=== PATIENT | female | born 1980 | race African-American/Black ===

== ENCOUNTER 2018-06-02 07:39 | Day surgery (SDC) | payer MEDICAID, OTHER ==
--- NOTE | 2018-06-02 08:18 | Anesthesia Day of Surgery ---
Anesthesia Day of Surgery - Day of Surgery Patient Examined: Yes Patient H&P Reviewed: Yes Patient is NPO: Yes
--- NOTE | 2018-06-02 08:18 | Anesthesia Consultation ---
Anesthesia Consult and Med Hx Date of service: 06/02/18 - Airway Anesthetic Teeth Evaluation: Good ROM Head & Neck: Adequate Mental/Hyoid Distance: Adequate Mallampati Class: Class II Intubation Access Assessment: Probably Good - Pre-Operative Health Status ASA Pre-Surgery Classification: ASA2 Proposed Anesthetic Plan: MAC - Pulmonary Hx Asthma: Yes (last attack 2 months ago) COPD: No Hx Pneumonia: No - Cardiovascular System Hx Hypertension: Yes (PIH) - Central Nervous System Hx Seizures: No Hx Psychiatric Problems: No - Endocrine Hx Renal Disease: No Hx End Stage Renal Disease: No Hx Hypothyroidism: No Hx Hyperthyroidism: No - Hematic Hx Anemia: No Hx Sickle Cell Disease: No - Other Systems Hx Alcohol Use: No
--- NOTE | 2018-06-02 08:36 | History and Physical Report ---
HISTORY OF PRESENT ILLNESS: This is a 37-year-old female originally from [place], who has been having dyspeptic symptoms and abdominal pain, possible gastritis and underlying history of hypertension. This dyspeptic symptom has been persisting in spite of treatment. She has also been told that she has had H. pylori gastritis in the past. ALLERGIES: No known allergies. SOCIAL HISTORY: Denies history of smoking or alcohol use. No cardiac issues. No flu shots. PHYSICAL EXAMINATION: VITAL SIGNS: She is afebrile. Blood pressure is 168/113, pulse is 74, height is 5 feet 5 inches, weight 164 pounds. HEENT: Examination shows no JVD. LUNGS: Clear to auscultation. CARDIOVASCULAR: Examination is normal. ABDOMEN: Shows some mid abdominal tenderness. Bowel sounds present. EXTREMITIES: No pedal edema. NEUROLOGIC: The patient is otherwise alert and oriented. IMPRESSION: Dyspepsia, gastritis, possible Helicobacter pylori gastritis, rule out peptic ulcer disease and hypertension. PLAN: Plan is to do an EGD at [facility] on 06/02/2018. JOB# [id number] MADELINE/NTS
[2018-06-02] MEDS ORDERED: NACL 0.9% 1000 ML 1,000 ML IV SCH (09:00)
[2018-06-02] MEDS ORDERED: DIPRIVAN 10 MG/ML IV ONE (09:07)
[2018-06-02] MEDS ORDERED: WATER FOR IRRIG STERILE IR ONE (09:43)
--- NOTE | 2018-06-02 10:02 | Procedure Note ---
Date of procedure: 06/02/18 Pre-op diagnosis: Dyspepsia/ Abdominal Pain/ P/H/O H.pylori gastritis Post-op diagnosis: other (Small Duodenal Ulcer/ Gastritis/ Mild, Distal Esophagitis) Procedure: EGD with Biopsy Anesthesia: AARON Surgeon: MABLE HUNG Estimated blood loss: minimal Pathology: list Specimen disposition: to lab Condition: stable Disposition: same day (Treat with PPI and avoid aspirin and NSAID. Follow up in 1 to 2 weeks ([phone]).)
--- NOTE | 2018-06-02 10:09 | Post Anesthesia Evaluation ---
- Post Anesthesia Evaluation Patient Participated: Yes (sleeping) Airway Patent: Yes Stable Respiratory Function: Yes Nausea/Vomiting: No Temp > 96.8F: Yes Pain Manageable: Yes Adequeate Hydration: Yes Anesthesia Complications: No Block Receding Appropriately: Not Applicable Patient on Ventilator: No
[2018-06-02] MEDS ORDERED: BABY ASPIRIN ONE (10:13)
--- NOTE | 2018-06-02 10:29 | Operative Report ---
PROCEDURE: EGD with biopsy. INDICATIONS: This is a 37-year-old female originally from [place] with a prior history of H. pylori gastritis, who lately has been having dyspeptic symptoms and abdominal pain. EGD was done to assess for any associated upper GI pathology. DESCRIPTION OF PROCEDURE: Procedure was done after getting informed consent with MAC anesthesia. Instrument was passed through the hypopharynx into the esophagus, which showed some mild distal esophagitis. Stomach showed antral gastritis. Biopsy was done from the gastric antrum, gastric body, and angularis incisura to rule out for H. pylori and atrophic gastritis. The pylorus was patent. The duodenum and the bulb showed a small duodenal ulcer. There was minimal bleeding from the biopsy sites. No complications associated with the procedure. ASSESSMENT: 1. Dyspepsia, abdominal pain, prior history of H. pylori gastritis. 2. Small duodenal ulcer. 3. Gastritis. 4. Mild distal esophagitis. Plan is to treat the patient with PPI, have the patient avoid aspirin and aspirin-related products for the next few days and I also advised the patient to refrain from smoking and have the patient follow up in the office in 1-2 weeks' time. RNMarya was in the room throughout the entirety of the procedure. [facility]# [id number] MADELINE/MEHUL
[2018-06-02 11:20] VITALS: BP 156/91
== END 2018-06-02 07:40 | disposition home or self-care (01) ==
LOC: GIO 07:39
DX: K29.50 Unspecified chronic gastritis without bleeding (principal); K20.8 Other esophagitis; K26.9 Duodenal ulcer, unspecified as acute or chronic, without hemorrhage or perforation; I10 Essential (primary) hypertension; J45.909 Unspecified asthma, uncomplicated; Z79.899 Other long term (current) drug therapy; Z98.890 Other specified postprocedural states; Z83.3 Family history of diabetes mellitus; Z82.49 Family history of ischemic heart disease and other diseases of the circulatory system
CPT/HCPCS: 43239; 81025; 88305; 88342; J2704; J7030

== ENCOUNTER 2018-06-19 15:22 | Emergency (ER) | payer OTHER ==
--- NOTE | 2018-06-19 15:38 | Emergency Department Report ---
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 ED Disposition for MSE Condition: Stable
[2018-06-19] MEDS ORDERED: PEPCID IV ONE (16:07)
[2018-06-19] MEDS ORDERED: BENADRYL IV ONE (16:07)
[2018-06-19] MEDS ORDERED: SOLU-Medrol IV ONE (16:07)
--- NOTE | 2018-06-19 16:09 | Emergency Department Report ---
HPI - General Chief Complaint: Allergic Reaction Time Seen by Provider: 06/19/18 15:33 - HPI HPI: 37-year-old female presents to the emergency department with complaint of a possible allergic reaction that started about one hour prior to arrival while she was at work. She started having some swelling around the eyes, generalized itching and a scratchy throat, and some vomiting. She has no known allergies to any medications, food or anything in the environment. She did not take anything for her symptoms prior to presentation. She does not have any shortness of breath, drooling, swelling of the lips or tongue. She has a past medical histo ry of hypertension and asthma. ED Past Medical Hx - Past Medical History Hx Hypertension: Yes Hx Congestive Heart Failure: No Hx Diabetes: No Hx Deep Vein Thrombosis: No Hx GERD: Yes Hx Renal Disease: No Hx Sickle Cell Disease: No Hx Seizures: No Hx Asthma: Yes Hx COPD: No Hx HIV: No - Surgical History Past Surgical History?: No - Social History Smoking Status: Never Smoker Substance Use Type: None - Medications Home Medications: Home Medications Medication Instructions Recorded Confirmed Last Taken Type Labetalol 200 mg PO BID 06/02/18 06/02/18 06/01/18 History Omeprazole/Sodium Bicarbonate 1 each PO DAILY 30 Days #30 capsule 06/02/18 Unknown Rx [Omeprazole-Bicarb 20-1,100 Cap] Ventolin HFA 2 puff INHALATION PRN PRN 06/02/18 06/02/18 Unknown History EPINEPHrine [Epipen 2-Fam] 0.3 mg IM PRN #1 box 06/19/18 Unknown Rx Famotidine [Pepcid] 20 mg PO BID #6 tablet 06/19/18 Unknown Rx RX: predniSONE [Deltasone] 20 mg PO BID #6 tab 06/19/18 Unknown Rx diphenhydrAMINE [Benadryl CAP] 25 mg PO Q8HR PRN #9 capsule 06/19/18 Unknown Rx ED Review of Systems ROS: Stated complaint: ALLERGIC REACTION/VOMIT Other details as noted in HPI Comment: All other systems reviewed and negative Constitutional: denies: chills, fever Eyes: denies: eye pain, vision change ENT: denies: ear pain, throat pain Respiratory: denies: shortness of breath, wheezing Cardiovascular: denies: chest pain, palpitations Gastrointestinal: vomiting. denies: abdominal pain Genitourinary: denies: dysuria, discharge Musculoskeletal: denies: back pain, arthralgia Skin: rash, pruritus Neurological: denies: headache, weakness Physical Exam - Physical Exam Vital Signs: Vital Signs 06/19/18 15:37 Temperature 98.5 F Pulse Rate 107 H Respiratory 20 Rate Blood Pressure 147/86 O2 Sat by Pulse 99 Oximetry Physical Exam: GENERAL: The patient is well-developed well-nourished. HEENT: Normocephalic. Atraumatic. Patient has moist mucous membranes. Oropharynx is clear. Mallampati of one. EYES: Extraocular motions are intact. Pupils are equal and reactive to light bilaterally. NECK: Supple. Trachea is midline. CHEST/LUNGS: Clear to auscultation. There is no respiratory distress noted. HEART/CARDIOVASCULAR: Regular. There is no tachycardia. There is no obvious murmur. ABDOMEN: Abdomen is soft, nontender. Patient has normal bowel sounds. There is no abdominal distention. SKIN: Skin is warm and dry. There is some mild swelling to the bilateral upper and lower eyelids. There are a few scattered urticaria seen. NEURO: The patient is awake, alert, and oriented. The patient is cooperative. The patient has no focal neurologic deficits. The patient has normal speech. MUSCULOSKELETAL: There is no tenderness or deformity. There is no limitation range of motion. There is no evidence of acute injury. ED Course Vital Signs 06/19/18 15:37 Temperature 98.5 F Pulse Rate 107 H Respiratory 20 Rate Blood Pressure 147/86 O2 Sat by Pulse 99 Oximetry ED Medical Decision Making - Lab Data Result diagrams: 06/19/18 16:09 06/19/18 16:09 - Medical Decision Making This patient presents to the emergency department with the complaint of some swelling around the eyes, generalized itching, and a scratchy throat that she feels is an allergic reaction. It is an unknown allergen. Patient does not appear to have any signs of any angioedema or any significant anaphylaxis. She was given IV fluid, Solu-Medrol, Pepcid and Benadryl. She was reevaluated multiple times over multiple hours and says that she feels improved. Vital signs stable throughout her ED course. She will be discharged home with a 3 day course of steroids, Benadryl, Pepcid and encouraged to see primary care physician. She will return to the ER with any worsening of her symptoms or any acute distress. They were given a prescription for an EpiPen. We discussed angioedema and/or anaphylaxis and within an EpiPen should be used. They also understand that if the EpiPen is used, that they will need to come to the emergency department immediately for evaluation afterwards. - Differential Diagnosis angioedema, anaphylaxis, allergic reaction, environmental allergies Critical Care Time: No Critical care attestation.: If time is entered above; I have spent that time in minutes in the direct care of this critically ill patient, excluding procedure time. ED Disposition Clinical Impression: Allergic reaction Qualifiers: Encounter type: initial encounter Qualified Code(s): T78.40XA - Allergy, unspecified, initial encounter Disposition: - TO HOME OR SELFCARE Is pt being admited?: No Condition: Stable Additional Instructions: Please follow up with a primary care physician regarding her allergic reaction. Take the steroids, Pepcid and Benadryl as prescribed. Return to the emergency Department with any worsening of your symptoms or any acute distress. I am giving a prescription for an EpiPen. This is to be used if you have an allergic reaction that includes shortness of breath, swelling of the tongue., Drooling, or any anaphylactic symptoms. If you have to use the EpiPen, call 911 and get evaluated in an emergency department immediately. Prescriptions: diphenhydrAMINE [Benadryl CAP] 25 mg PO Q8HR PRN #9 capsule PRN Reason: Allergic Reaction EPINEPHrine [Epipen 2-Fam] 0.3 mg IM PRN #1 box Famotidine [Pepcid] 20 mg PO BID #6 tablet RX: predniSONE [Deltasone] 20 mg PO BID #6 tab Referrals: Primary Care Physician, Your [Other] - 3-5 Days
[2018-06-19 16:30] LABS: Basophils # (Auto) 0.1 K/mm3 (0.0-0.1); Basophils % (Auto) 0.8 % (0.0-1.8); Eosinophils % (Auto) 0.5 % (0.0-4.3); Hematocrit 39.6 % (30.3-42.9); Hemoglobin 13.2 gm/dl (10.1-14.3); Lymphocytes # (Auto) 2.4 K/mm3 (1.2-5.4); Mean Corpuscular HGB Conc 33 % (30-34); Mean Corpuscular Volume 93 fl (79-97); Monocytes # (Auto) 0.5 K/mm3 (0.0-0.8); Monocytes % (Auto) 5.8 % (0.0-7.3); Platelet Count 303 K/mm3 (140-440); Red Blood Count 4.25 M/mm3 (3.65-5.03); Red Cell Distribution Width 13.1 % (13.2-15.2)
[2018-06-19 16:46] LABS: Alanine Aminotransferase 27 units/L (7-56); Albumin 4.6 g/dL (3.9-5); BUN/Creatinine Ratio 57; Blood Urea Nitrogen 17 mg/dL (7-17); Hemolysis Index 42
[2018-06-19 18:38] VITALS: BP 114/67
== END 2018-06-19 18:37 | disposition home or self-care (01) ==
LOC: ED 15:22
DX: T78.40XA Allergy, unspecified, initial encounter (principal); I10 Essential (primary) hypertension; K21.9 Gastro-esophageal reflux disease without esophagitis; J45.909 Unspecified asthma, uncomplicated; Y92.89 Other specified places as the place of occurrence of the external cause
CPT/HCPCS: 36415; 80053; 85025; 96374; 96375; 99283; J1200; J2930

== ENCOUNTER 2018-07-09 19:07 | Emergency (ER) | payer OTHER ==
[2018-07-09] MEDS ORDERED: NORCO 5/325 PO ONE (19:38)
[2018-07-09] MEDS ORDERED: DELTASONE PO ONE (19:38)
[2018-07-09] MEDS ORDERED: FLEXERIL PO ONE (19:38)
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
[2018-07-09] MEDS ORDERED: TYLENOL PO ONE (21:56)
[2018-07-09 22:32] VITALS: BP 150/89
== END 2018-07-10 | disposition home or self-care (01) ==
LOC: ED 19:07
DX: S40.011A Contusion of right shoulder, initial encounter (principal); I10 Essential (primary) hypertension; J45.909 Unspecified asthma, uncomplicated; K21.9 Gastro-esophageal reflux disease without esophagitis; V59.19XA Passenger in pick-up truck or van injured in collision with other motor vehicles in nontraffic accident, initial encounter; Y93.89 Activity, other specified; Y92.488 Other paved roadways as the place of occurrence of the external cause; Y99.8 Other external cause status
CPT/HCPCS: 36415; 84703; 99284